=== PATIENT | male | born 1980 | race Two or more races ===

== ENCOUNTER 2019-10-26 19:30 | Emergency (ER) | payer OTHER ==
[~2019-10-26] VITALS: Ht 167.6 cm; Wt 77.0 kg
[2019-10-26] MEDS ORDERED: KETOROLAC 30 MG/ML VIAL. IM ONE (20:30)
[2019-10-26] MEDS ORDERED: DEXAMETHASONE 4 MG TABLET PO ONE (20:30)
--- NOTE | 2019-10-26 20:37 | PHYS DOC ---
Past History Past Medical History: No Pertinent History Past Surgical History: Other Additional Past Surgical Histo: bilateral knee acl reconstruction Smoking: Non-smoker Alcohol Use: None Drug Use: None Adult General Chief Complaint Chief Complaint: BACK PAIN OR INJURY HPI HPI Patient is a 38-year-old male who presents to the ED with right sided paraspinal back pain, right hip/upper gluteal pain, and right lateral knee pain. Patient stated that when he was stepping down yesterday he felt his knee twist and a sharp pain that radiated from his right knee up to his right hip into his low back. He states now that he has sharp achy pain in 3 separate areas including h is lateral right knee, his right hip/upper gluteal region, and his right perispinal musculature in the lumbar region. He states that the pain is constant and worse with change in position. He also states that he has changed his gait to accommodate for pain with weight bearing. He has not taken anything for his pain currently. He states that the pain is now nonradiating. He rates it as a 7 out of 10 currently. Review of Systems Review of Systems Constitutional: Denies fever or chills Musculoskeletal: Reports right sided paraspinal back pain and right knee joint pain Integument: Denies rash or skin lesions Neurologic: Denies headache, focal weakness or sensory changes Complete systems were reviewed and found to be within normal limits, except as documented in this note. Family History Family History No pertinent family history Current Medications Current Medications Current Medications Medications (Trade) Dose Ordered Sig/Nic Start Time Stop Time Status Last Admin Dose Admin Dexamethasone (Decadron) 10 mg 1X ONCE 10/26/19 20:30 10/26/19 20:31 UNV Ketorolac Tromethamine (Toradol 30mg Vial) 30 mg 1X ONCE 10/26/19 20:30 10/26/19 20:31 UNV Allergies Allergies Allergies Coded Allergies Type Severity Reaction Last Updated Verified No Known Drug Allergies 10/26/19 No Physical Exam Physical Exam Constitutional: Well developed, well nourished, no acute distress, uncomfortable appearance HENT: Normocephalic, atraumatic, oropharynx moist Eyes: EOMI, conjunctiva normal, no discharge Neck: Normal range of motion, no tenderness, supple Cardiovascular: Heart rate normal, regular rhythm Lungs & Thorax: Bilateral breath sounds clear to auscultation, no wheezing Abdomen: Soft, no tenderness Skin: Warm, dry, no erythema, no rash Back: Paraspinal musculature tenderness to palpation, no CVA tenderness, Extremities: Trace edema his right lateral knee, no erythema present ROM of the hip and knee restricted secondary to pain, Neurologic: Alert and oriented X 3, normal motor function, normal sensory function, no focal deficits noted Psychologic: Affect normal, judgment normal Current Patient Data Vital Signs Vital Signs Date Time Temp Pulse Resp B/P (MAP) Pulse Ox O2 Delivery O2 Flow Rate FiO2 10/26/19 19:50 98.2 81 18 130/79 (96) 98 Room Air EKG EKG [] Radiology/Procedures Radiology/Procedures PROCEDURE: KNEE RIGHT 3V Right knee x-rays 3 views HISTORY: Twisting injury, right knee pain, history of prior knee surgery. FINDINGS: There is a chronic surgical or traumatic defect of the proximal tibial metaphysis with linear planar density presumably representing placement of bone cement within the defect. No resorption of the density to suggest infection or autoimmune was reduction. Staple at the medial proximal tibia metadiaphysis presumably for fixation of the medial collateral ligament or pes anserine tendon. No fracture. No dislocation. IMPRESSION: No acute osseous injury. Chronic traumatic and post surgical changes as described above. Electronically signed by: Shon Garcia MD (10/26/2019 8:56 PM) [id number] Course & Med Decision Making Course & Med Decision Making Pertinent Imaging studies reviewed. (See chart for details) Patient is a 38-year-old male who presents to the ED with right knee pain, right paraspinal back pain, and right hip/upper gluteal pain secondary to a knee twisting injury. Patient stated that yesterday he stepped down when his knee twisted and he felt a sharp pain that radiates from his right knee to his right hip and to his right lumbar region. He states that today he rested and now has 3 separate sharp achy areas that include his right knee, right hip, and right paraspinal musculature. He states that the pain is worse in certain positions. He has not taken anything for the pain currently. He rates it as a 7 out of 10. Patient was seen in the ED and worked up for possible causes of knee pain and strain versus contusion versus fracture. Patient received a knee x-ray that showed no fractures. Patient received an PASCUAL wrap for his knee, crutches to help her rest the knee, and instructions on home care or probable strain of knee. Patient received prescriptions for naproxen and Norflex. Patient stable for discharge with outpatient follow-up with PCP/Orthopedics. Discussed findings and plan with patient and family, who acknowledge understanding and agreement. Dragon Disclaimer Dragon Disclaimer This electronic medical record was generated, in whole or in part, using a voice recognition dictation system. Splinting Splinting : Location: Right knee Pre-Made Type: PASCUAL bandage Pre-Proc Neuro Vasc Exam: normal Post-Proc Neuro Vasc Exam: normal, unchanged from pre-exam Departure Departure: Impression: Primary Impression: Knee pain, right Additional Impression: Back pain Disposition: HOME, SELF-CARE Condition: STABLE Referrals: MARIA FERNANDA VIRK PA-C (PCP) LUZ VIGIL MD Patient Instructions: Crutch Use, [id number], Knee Pain, [id number], Knee Wraps (Elastic Bandage) and RICE Additional Instructions: May also use over the counter Tylenol for pain or discomfort. Scripts Orphenadrine Citrate (ORPHENADRINE CITRATE) 100 Mg Tablet.er 1 TAB PO BID PRN for MUSCLE PAIN, #14 TAB 0 Refills Prov: BLAINE MILLER DO 10/26/19 Naproxen (NAPROXEN) 375 Mg Tablet 1 TAB PO TID PRN for PAIN, #30 TAB 0 Refills with food Prov: BLAINE MILLER DO 10/26/19 Problem Qualifiers Primary Impression: Knee pain, right Chronicity: acute Qualified Codes: M25.561 - Pain in right knee Additional Impression: Back pain Back pain location: low back pain Chronicity: acute Back pain laterality: right Sciatica presence: without sciatica Qualified Codes: M54.5 - Low back pain BLAINE MILLER DO Oct 26, 2019 20:37
--- NOTE | 2019-10-26 20:59 | RAD ---
Right knee x-rays 3 views HISTORY: Twisting injury, right knee pain, history of prior knee surgery. FINDINGS: There is a chronic surgical or traumatic defect of the proximal tibial metaphysis with linear planar density presumably representing placement of bone cement within the defect. No resorption of the density to suggest infection or autoimmune was reduction. Staple at the medial proximal tibia metadiaphysis presumably for fixation of the medial collateral ligament or pes anserine tendon. No fracture. No dislocation. IMPRESSION: No acute osseous injury. Chronic traumatic and post surgical changes as described above. Electronically signed by: Shon Garcia MD (10/26/2019 8:56 PM) [id number]
[2019-10-26] MEDS ORDERED: NAPR-695 PO (21:01)
[2019-10-26] MEDS ORDERED: ORPH-16 PO (21:01)
[2019-10-26 21:25] VITALS: BP 118/84
== END 2019-10-26 21:35 | disposition home or self-care (01) ==
LOC: ER 19:30
DX: M25.561 Pain in right knee (principal); M54.5 Low back pain; X50.1XXA Overexertion from prolonged static or awkward postures, initial encounter; Y93.89 Activity, other specified; Y92.89 Other specified places as the place of occurrence of the external cause; Y99.8 Other external cause status
CPT/HCPCS: 73562; 96372; 99283; J1885; J8540